=== PATIENT | male | born 1950 | race Caucasian/White ===

== ENCOUNTER → 2018-04-22 | Day surgery (SDC) | payer OTHER ==
[2018-04-20 17:52] LABS: BASOPHILS # (AUTO) 0.1 (0.0-0.1); BASOPHILS % 1.2 % (0.0-1.0); EOSINOPHILS # (AUTO) 0.4 (0.0-0.4); EOSINOPHILS % 4.4 % (0.0-6.0); HEMATOCRIT 47.9 % (38.2-49.6); HEMOGLOBIN 16.5 g/dL (14.0-18.0); LYMPHOCYTES # (AUTO) 1.8 (1.0-3.2); LYMPHOCYTES % 21.5 % (18.0-39.1); MEAN CORPUSCULAR HEMOGLOBIN 29.7 pg (28-32); MEAN CORPUSCULAR HGB CONC 34.4 g/dL (31-35); MEAN CORPUSCULAR VOLUME 86.2 fL (81-99); MONOCYTES # (AUTO) 0.6 (0.2-0.8); MONOCYTES % 7.3 % (4.4-11.3); NEUTROPHILS # (AUTO) 5.5 (2.1-6.9); NEUTROPHILS % 64.4 % (38.7-80.0); PLATELET COUNT 249 x10e3/uL (140-360); RED BLOOD COUNT 5.56 x10e6/uL (4.3-5.7); RED CELL DISTRIBUTION WIDTH 13.3 % (11.7-14.4)
--- NOTE | 2018-04-20 17:59 | Diagnostic Imaging Report ---
PROCEDURE: Frontal and lateral views of the chest. COMPARISON: None. INDICATIONS: PRE-OP FINDINGS: Lines/tubes: None. Lungs: The lungs are well inflated and clear. There is no evidence of pneumonia or pulmonary edema. Pleura: There is no pleural effusion or pneumothorax. Mild eventration of the anterior right hemidiaphragm. Heart and mediastinum: Cardiac silhouette is unremarkable. Pulmonary vasculature is normal. Bones: No acute bony abnormality. Mild degenerative changes in the thoracic spine. IMPRESSION: 1. No acute cardiopulmonary abnormalities.. Richard Sahu M.D. Dictated by: Richard Sahu M.D. on 04/20/2018 at 18:04 Electronically approved by: Richard Sahu M.D. on 04/20/2018 at 18:04
[2018-04-20 18:01] LABS: INR 0.99; PROTHROMBIN TIME 12.3 seconds (11.9-14.5)
[2018-04-20 18:02] LABS: PARTIAL THROMBOPLASTIN TIME 28.3 seconds (23.8-35.5)
[2018-04-20 18:09] LABS: ANION GAP 16.1 mmol/L (8-16); CALCIUM 9.8 mg/dL (8.4-10.2); CREATININE, SERUM 1.24 mg/dL (0.72-1.25); POTASSIUM 4.1 mmol/L (3.5-5.1)
[~2018-04-22] MED LIST: ASPIR 8181 MG PO; BACITRACIN 50,000 UNIT VIAL ONE; BETA PROSTATE PO; BUPIVACAINE 0.5%/EPI 30 ML SDV INJ ONE; CARVEDILOL25 MG PO; CEFAZOLIN SOD 1 GM VIAL ONE; DEXAMETHASONE SOD PHOS INJ 4 MG/ML VIAL ONE; DIGOXIN250 MCG PO; EPHEDRINE SULFATE INJ 50 MG/10 ML SYR ONE; FENTANYL CITRATE/PF 100MCG/2 ML INJ ONE; FUROSEMIDE PO; INSULIN INJ; LEVOTHYROXINE50 MCG PO; LIDOCAINE HCL 2% LOCAL INJ 5 ML SDV VIAL INJ ONE; LOSARTAN-HCTZ1 EAC1 PO; LYRICA150 MG PO; LYRICA300 MG PO; MELATONIN10 M1 PO; METFORMIN HCL1000 MG PO; MULTIPLE VITAM1 EAC2 PO; ONDANSETRON HCL INJ 2 MG/ML VIAL ONE; PROPOFOL IV EMULSION 10 MG/ML 20 ML VIAL ONE; SEVOFLURANE INHAL SOLN 250 ML PEN BTL ONE; TRAZODONE HCL150 MG PO; TRULICITY INJ; VITAMIN D2000 UNI1 PO
--- NOTE | 2018-04-22 13:40 | Operative Report ---
DATE OF PROCEDURE: April 22, 2018 PREOPERATIVE DIAGNOSIS: Myopathy, G72.9. POSTOPERATIVE DIAGNOSIS: Myopathy, G72.9. PROCEDURE: Right quadriceps muscle biopsy. ANESTHESIA: General. INDICATIONS: Patient is a 67-year-old man who presents with a possible myopathy. His attending neurologist, Dr. Tawny Parra, has requested a muscle biopsy. He was taken to the operating for this diagnostic procedure. PROCEDURE: After induction of general anesthesia, the patient was placed on the operating table in supine position. The right anterior thigh region was clipped, prepped and draped in sterile fashion. A small vertical incision was created over the vastus lateralis. The subcutaneous fat was divided. The muscle fascia was opened. A bundle of muscle fibers was isolated with a right angled hemostat and was cut proximally and distally with a number 15 blade. The muscle bundle was placed over a sterile tongue depressor and wrapped in moist gauze and sent immediately to pathology laboratory. Meticulous hemostasis of the muscle was achieved with bipolar electrocautery. The muscle fascia was closed with 2-0 Vicryl sutures. The subcutaneous layer was closed with 2-0 Vicryl sutures. The skin was closed with 3-0 Monocryl sutures in subcuticular fashion. Steri strips and dressing were applied. The patient was awakened, extubated in post anesthesia care unit in stable condition. No intraoperative complications were encountered. Estimated blood loss was minimal. 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
== END | disposition home or self-care (01) ==
LOC: OR 07:17
PROVIDERS: ATTEND Neurological Surgery
DX: G72.9 Myopathy, unspecified (principal); E11.22 Type 2 diabetes mellitus with diabetic chronic kidney disease; I13.0 Hypertensive heart and chronic kidney disease with heart failure and stage 1 through stage 4 chronic kidney disease, or unspecified chronic kidney disease; N18.9 Chronic kidney disease, unspecified; I50.9 Heart failure, unspecified; G47.33 Obstructive sleep apnea (adult) (pediatric); E66.01 Morbid (severe) obesity due to excess calories; F17.210 Nicotine dependence, cigarettes, uncomplicated; Z01.810 Encounter for preprocedural cardiovascular examination; Z01.812 Encounter for preprocedural laboratory examination; Z01.818 Encounter for other preprocedural examination; Z79.4 Long term (current) use of insulin; Z79.82 Long term (current) use of aspirin; Z68.39 Body mass index [BMI] 39.0-39.9, adult
CPT/HCPCS: 20205; 36415 ×2; 71046; 80048; 82948; 85025; 85610; 85730; 86850; 86900; 93005; J0690; J1100; J2001; J2405